=== PATIENT | female | born 1985 | race Caucasian/White ===

== ENCOUNTER 2020-11-01 03:12 | Inpatient (IN) | payer OTHER ==
[~2020-11-01] VITALS: Ht 172.7 cm; Wt 86.2 kg
[2020-11-01] MEDS ORDERED: VALTREX1000 MG (05:44)
[2020-11-01] MEDS ORDERED: CHILDREN'S ASPI81 MG (05:45)
[2020-11-01] MEDS ORDERED: PRENATA CHEWAB1 EACH (05:45)
== END 2020-11-04 12:56 | disposition home or self-care (01) | DRG 788 ==
LOC: LDR 03:12 → OB/GYN 03:12 → LDR 07:53 → O/R 17:31 → OB/GYN 18:53
PROVIDERS: ADMIT Specialist; ATTEND Specialist
PROC: 3E0P7VZ Introduction of Hormone into Female Reproductive, Via Natural or Artificial Opening (ICD-10-PCS; 2020-11-01)
PROC: 4A1HXFZ Monitoring of Products of Conception, Cardiac Rhythm, External Approach (ICD-10-PCS; 2020-11-01)
PROC: 10D00Z1 Extraction of Products of Conception, Low, Open Approach (ICD-10-PCS; principal; 2020-11-01 23:15)
DX: O61.0 Failed medical induction of labor (principal); O42.02 Full-term premature rupture of membranes, onset of labor within 24 hours of rupture; Z3A.39 39 weeks gestation of pregnancy; Z37.0 Single live birth; Z20.822 Contact with and (suspected) exposure to COVID-19